=== PATIENT | female | born 1960 | race Hispanic/Latino ===

== ENCOUNTER 2024-02-02 10:40 | Emergency (ER) | payer BC ==
[~2024-02-02] VITALS: Ht 157.5 cm; Wt 55.8 kg
[2024-02-02] MEDS: HYDROCODONE/ACETAMINOPHEN 5/325 MG TAB PO ONE (11:08)
[2024-02-02] MEDS ORDERED: IBUP-2070 PO (11:34)
[2024-02-02] MEDS ORDERED: TRAM-543 PO (11:34)
[2024-02-02] MEDS ORDERED: PENI500T2 PO (11:34)
[2024-02-02] MEDS: CEFTRIAXONE 1G VIAL IM ONE (12:13)
[2024-02-02] MEDS: KETOROLAC 30MG VIAL (30MG/ML) IM ONE (12:13)
[2024-02-02 12:23] VITALS: BP 129/87; PULSE 88; RESP 20; O2SAT 99
== END 2024-02-02 12:24 | disposition home or self-care (01) ==
LOC: EDH 10:40
DX: K04.7 Periapical abscess without sinus (principal); Z88.5 Allergy status to narcotic agent
CPT/HCPCS: 99284; 96372 ×2; J0696; J1885